=== PATIENT | female | born 1965 | race Asian ===

== ENCOUNTER → 2020-07-17 14:40 | Outpatient (CLI) | payer OTHER, SELFPAY ==
[2020-07-17 16:55] LABS: Coronavirus 19 IgG Antibody Negative (Negative); Coronavirus 19 IgM Antibody Negative (Negative)
== END ==
PROVIDERS: Visit Provider Internal Medicine Gastroenterology
DX: Z01.812 Encounter for preprocedural laboratory examination (principal); Z11.52 Encounter for screening for COVID-19; Z13.810 Encounter for screening for upper gastrointestinal disorder
CPT/HCPCS: 36415; 86328

== ENCOUNTER 2020-07-18 10:28 | Day surgery (SDC) | payer OTHER, SELFPAY ==
[2020-07-14 10:35] VITALS: BMI 19.5
[2020-07-18] VITALS (8 sets, daily range): BP systolic 111–131; BP diastolic 69–75; PULSE 51–65; RESP 16–18; TEMP 36.2–36.6; O2SAT 7–100
--- NOTE | 2020-07-18 12:03 | P.PCN_ITS ---
[facility] Procedure Note Procedure Note:: Upper Endoscopy Procedure Report: Esophagogastroduodenoscopy with cold biopsies and TTS balloon dilation Endoscopost: Gregory Olmos II, MD Referring Physician: Derek Ball M.D. Date of Procedure: July 18, 2020 Equipment: Olympus GIF 190 standard upper endoscope Sedation: MAC sedation Indications: Mrs. Monahan is a 55-year-old Tel[place] female who has been getting epigastric and some retrosternal pain and discomfort for several months. This is new. She does have some pressure and bloating. She does get some dysphagia. She reports no heartburn, reflux or belching. She does get a foul odor after eating. Her father may have had stomach cancer. The patient reports no melanotic, hematochezia or weight loss. This is her first upper endoscopy. Lab work did show normal hemoglobin 12.7 and hematocrit 38.9. Her liver chemistries were normal. Procedure: Prior to the procedure, a history and physical exam was performed, and patient's medications and allergies were reviewed. The risks, benefits and alternatives of the sedation and procedure were discussed with the patient. All questions were answered and informed consent was obtained. The patient was brought to the procedure room. Patient identification and proposed procedure were verified by the physician and the nurse. The patient was placed in a left lateral decubitus position and the scope was passed under direct vision. Throughout the procedure, the patient's blood pressure, pulse, and oxygen saturations were mon itored continuously. The upper GI endoscopy was accomplished without difficulty. The patient tolerated the procedure well. Findings: The scope was passed directly into the upper esophagus and advanced to the third portion of the duodenum. The post bulbar duodenum and duodenal bulb were normal with normal mucosa and conniventes. The scope was withdrawn through a normal duodenal bulb and pylorus into the stomach. There was mild linear reactive gastropathy of the prepyloric antrum. There was some chronic gastritis of the body and fundus with some gastric atrophic gastritis. Cold biopsies were obtained from the lesser curvature and fundus of the stomach. Upon retroflexion there was no hiatal hernia. The scope was then withdrawn into the esophagus. There was a serrated Z-line. Biopsies were taken at the GE junction. There were tertiary contractions and evidence of moderate esophageal dysmotility. The entire esophagus was dilated to 60 Romansh/20 mm with a TTS hydrostatic balloon. There was some resistance at the cricopharyngeus. The remainder of the esophageal mucosa was normal. Impression: 1. Cricopharyngeal spasm status post dilation to 20 mm 2. Nonerosive GERD with moderate esophageal dysmotility 3. Mild linear erosive reactive gastropathy (of antrum body) and mild chronic atrophic gastritis of body and fundus Plan: I will follow-up the biopsies. I do feel that the patient has functional dyspepsia and functional reflux with symptoms. I do feel that this is related to some obstipation. We will discuss dietary measures and treatment options.
--- NOTE | 2020-07-18 15:27 | HMH.ANESCL ---
[facility] Anesthesia Checklist - Patient Identification Patient Identification: Arm Band - Structural Data Admitted From: Home Planned Operative Procedure/s: EGD Consent for Planned Operative Procedure(s) Verified: Yes Verified Documents: Surgical Consent, History and Physical - NPO Status Verified Time NPO: 00:00 - Airway Assessment C-Spine Mobility Assessed: Yes TMJ Mobility Assessed: Yes Dentition: Good Dentition - Neurological Assessment Level of Consciousness: Awake, Alert - Anesthesia Plan Anesthesia Risk discussed: Yes Anesthesia Plan: Verified ASA Class: II Anesthesia Type: MAC [facility] History I have reviewed the patient's past medical history: Yes Medical History: Denies:: Cancer, Diabetes Mellitus Type 1, Diabetes Mellitus Type 2, Internal Pacemaker, MRSA, Seizures *Have you ever received a pneumonia vaccine?: No *Have you received a flu vaccine this season?: No Anesthesia experience/problems:: None Other Surgeries: No: Pacemaker Amputation: No Fractures: No - *Social History Last grade of school completed: Some college Smoking Status: Never smoker Alcohol Intake: never Substance Use Type: denies use *Occupational Status:: unemployed Housing: house Household Members: spouse *Travel in the last 8 weeks: None Family Hx:: Cancer
== END 2020-07-18 13:50 | disposition home or self-care (01) ==
LOC: OUTP 10:30
PROVIDERS: Visit Provider Internal Medicine Gastroenterology
PROC: 0DJ08ZZ Inspection of Upper Intestinal Tract, Via Natural or Artificial Opening Endoscopic (ICD-10-PCS; CPT 43235; principal; 2020-07-18 11:00)
DX: K30 Functional dyspepsia (principal); J39.2 Other diseases of pharynx; K22.4 Dyskinesia of esophagus; K21.9 Gastro-esophageal reflux disease without esophagitis; K31.9 Disease of stomach and duodenum, unspecified; K29.40 Chronic atrophic gastritis without bleeding; R56.9 Unspecified convulsions
CPT/HCPCS: 43239; 43249; C1726